=== PATIENT | female | born 1940 | race Caucasian/White ===

== ENCOUNTER 2017-01-01 17:41 | Inpatient (IN) ==
[2017-01-01] MEDS ORDERED: ACETAMINOPHEN 325 MG TABLET PO ONE (18:04)
--- NOTE | 2017-01-01 18:04 | Emergency Department Note ---
General Adult HPI - General Chief complaint: Neuro Symptoms/Deficit Stated complaint: Hand tremors Time Seen by Provider: 01/01/17 17:55 Source: patient Mode of arrival: ambulatory Limitations: no limitations - History of Present Illness HPI Narrative: 76-year-old female who states within the last hour she started developing fever and chills the current temperature is 103.4 with a rectal temperature 104.2 denies any cough no shortness of breath. Denies urgency frequency or dysuria there is been no nausea vomiting no diarrhea constipation problems no hematemesis no melena. Denies upper respiratory type signs or symptoms. She states that she did scrape her heel on the left on some Sinemet approximately 5 days ago and has a small open wound on the left heel she is not diabetic. Patient denies any abdominal pain rate is running approximately 103 b pulse ox is normal - Related Data Home Medications Medication Instructions Recorded Confirmed Diltiazem HCl [Diltiazem ER] 240 mg PO DAILY 01/01/17 01/01/17 Rivaroxaban [Xarelto] 20 mg PO HS 01/01/17 01/01/17 Tolterodine Tartrate [Detrol] 2 mg PO BID 01/01/17 01/01/17 Allergies Allergy/AdvReac Type Severity Reaction Status Date / Time No Known Drug Allergies Allergy Unverified 01/01/17 17:45 Review of Systems All systems ED: reviewed and negative except as stated. Constitutional: Reports: fever, chills Eyes: Denies: eye pain ENT ED: Denies: ear pain, throat pain Cardiovascular: Denies: chest pain, palpitations, dyspnea on exertion Respiratory: Denies: cough, dyspnea Gastrointestinal: Denies: abdominal pain, nausea, vomiting, diarrhea, constipation Genitourinary: Denies: urgency, dysuria, frequency Musculoskeletal: Denies: back pain Integumentary: Denies: rash Neurological: Denies: as per HPI, headache, weakness, numbness, paresthesias, confusion, abnormal gait Psychiatric: Denies: anxiety Endocrine: Denies: fatigue Hematological/Lymphatic: Denies: easy bleeding Allergic/Immunologic: Denies: facial swelling Past Medical History - Past Medical History Medical history: Reports: atrial fibrillation (on xeralto) Surgical history ED: Reports: other (right knee) Family history: Reports: cancer (father lung and sister colon), diabetes ( mother age 93) - Social History smoking status: Never smoker Alcohol use: Reports: None Drug use: Reports: none Physical Exam - General Limitations: no limitations General appearance: alert - Head Head exam: atraumatic, normocephalic - Eye Eye exam: Present: normal appearance, PERRL - ENT ENT exam: normal exam, normal oropharynx, mucous membranes moist - Neck Neck exam: Present: normal inspection, full ROM, trachea midline - Chest Chest inspection: Present: normal inspection, symmetric chest wall rise. Absent : tenderness - Respiratory Respiratory exam: Present: normal lung sounds bilaterally. Absent: respiratory distress, wheezes, stridor - Cardiovascular Cardiovascular exam: Present: regular rate, tachycardia - Abdominal Exam Abdominal exam: Present: soft, normal bowel sounds. Absent: distention, tenderness, guarding, rebound, rigidity - Extremities Exam Extremities exam: Present: normal inspection, full ROM. Absent: tenderness - Back Exam Back exam: Present: normal inspection, full ROM. Absent: tenderness - Neurological Exam Neurological exam: Present: alert, oriented X3, CN II-XII intact - Psychiatric Psychiatric exam: Present: normal affect, normal mood - Skin Skin exam: Present: warm, dry Course Vital Signs Temperature 100.1 F H 01/01/17 17:42 Pulse Rate 103 H 01/01/17 17:42 Respiratory Rate 18 01/01/17 17:42 Blood Pressure 178/75 01/01/17 17:42 Pulse Oximetry (%) 96 01/01/17 17:42 Temperature 102.7 F H 01/01/17 19:21 Pulse Rate 96 H 01/01/17 20:48 Respiratory Rate 18 01/01/17 20:48 Blood Pressure 137/69 01/01/17 20:32 Pulse Oximetry (%) 94 01/01/17 20:48 Medical Decision Making - [facility] Narrative Medical decision making narrative: urine did show 8 wbc/hpf, also redness around sore on left heel wbc 17,000, chest x ray normal. lactic 1.8 pt reluctant to be admitted but finally consented and Dr Doll consulted and pt to be admitted levaquin first given for uti then vancomycin after blood cultures drawn. c and s pending - Lab Data Result diagrams: 01/01/17 17:55 01/01/17 17:55 Lab Results 01/01/17 01/01/17 01/01/17 Range/Units 17:55 17:55 17:55 WBC 17.0 H (4.5-11.0) K/mcL RBC 4.30 (4.00-5.20) M/mcL Hgb 12.6 (12.0-15.0) g/dL Hct 37.5 (36.0-48.0) % MCV 87.2 (80.0-100.0) fL MCH 29.3 (26.0-34.0) pg MCHC 33.6 (31.0-36.0) g/dL RDW 14.0 (11.5-14.5) % Plt Count 223 (140-440) K/mcL MPV 9.4 (7.4-10.4) fL Total Counted 100 Seg Neutrophils % 86 H (38-78) % Band Neutrophils % 1 (0-10) % Lymphocytes % 9 L (15-49) % Monocytes % (Manual) 4 (1-12) % Platelet Estimate Normal (NORMAL) RBC Morphology Normal (NORMAL) VBG Lactic Acid 1.8 (0.5-2.2) mmol/L Sodium 137 (133-145) mmol/L Potassium 4.6 (3.3-5.1) mmol/L Chloride 98 (96-108) mmol/L Carbon Dioxide 21 L (22-30) mmol/L Anion Gap 18.0 H (8-16) BUN 27 H (8-23) mg/dl Creatinine 1.1 (0.6-1.1) mg/dl GFR Calculation 48 Glucose 85 (70-105) mg/dL Calcium 9.1 (8.6-10.4) mg/dl Total Bilirubin 0.4 (0.0-1.0) mg/dL AST 21 (0-37) U/l ALT 12 (0-40) U/l Alkaline Phosphatase 91 (39-117) U/L Total Protein 8.0 (5.9-8.4) gm/dL Albumin 4.4 (3.2-5.2) gm/dL Globulin 3.6 (2.2-3.7) gm/dL Albumin/Globulin Ratio 1.2 (1.0-2.3) Urine Color Urine Appearance Urine pH (5.0-9.0) Ur Specific [place] (1.000-1.035) Urine Protein (NEG) mg/dL Urine Glucose (UA) (NEG) mg/dL Urine Ketones (NEG) mg/dL Urine Occult Blood (<0.03) mg/dL Urine Nitrate (NEG) Urine Bilirubin (NEG) mg/dL Urine Urobilinogen (NEG) mg/dL Ur Leukocyte Esterase (NEG) /uL Urine RBC (0-1) /hpf Urine WBC (0-4) /hpf Ur Squamous Epith Cells (0-4) /hpf Ur Transition Epith Cell (0-2) /hpf Urine Bacteria (0) /hpf Hyaline Casts (0-2) /lpf Urine Mucus (0) /hpf Ur Culture Indicated? 01/01/17 Range/Units 18:43 WBC (4.5-11.0) K/mcL RBC (4.00-5.20) M/mcL Hgb (12.0-15.0) g/dL Hct (36.0-48.0) % MCV (80.0-100.0) fL MCH (26.0-34.0) pg MCHC (31.0-36.0) g/dL RDW (11.5-14.5) % Plt Count (140-440) K/mcL MPV (7.4-10.4) fL Total Counted Seg Neutrophils % (38-78) % Band Neutrophils % (0-10) % Lymphocytes % (15-49) % Monocytes % (Manual) (1-12) % Platelet Estimate (NORMAL) RBC Morphology (NORMAL) VBG Lactic Acid (0.5-2.2) mmol/L Sodium (133-145) mmol/L Potassium (3.3-5.1) mmol/L Chloride (96-108) mmol/L Carbon Dioxide (22-30) mmol/L Anion Gap (8-16) BUN (8-23) mg/dl Creatinine (0.6-1.1) mg/dl GFR Calculation Glucose (70-105) mg/dL Calcium (8.6-10.4) mg/dl Total Bilirubin (0.0-1.0) mg/dL AST (0-37) U/l ALT (0-40) U/l Alkaline Phosphatase (39-117) U/L Total Protein (5.9-8.4) gm/dL Albumin (3.2-5.2) gm/dL Globulin (2.2-3.7) gm/dL Albumin/Globulin Ratio (1.0-2.3) Urine Color Yellow Urine Appearance Clear Urine pH 5.0 (5.0-9.0) Ur Specific [place] 1.016 (1.000-1.035) Urine Protein Neg (NEG) mg/dL Urine Glucose (UA) Negative (NEG) mg/dL Urine Ketones Neg (NEG) mg/dL Urine Occult Blood 0.03 A (<0.03) mg/dL Urine Nitrate Neg (NEG) Urine Bilirubin Neg (NEG) mg/dL Urine Urobilinogen Neg (NEG) mg/dL Ur Leukocyte Esterase 75 A (NEG) /uL Urine RBC 1 (0-1) /hpf Urine WBC 8 H (0-4) /hpf Ur Squamous Epith Cells 2 (0-4) /hpf Ur Transition Epith Cell 1 (0-2) /hpf Urine Bacteria 0 (0) /hpf Hyaline Casts 1 (0-2) /lpf Urine Mucus Few (0) /hpf Ur Culture Indicated? Yes Disposition Pt seen by TRUCK TECHNICIAN/PA only: No Clinical Impression: Cellulitis of heel, left, UTI (urinary tract infection) Disposition: Xfer As Inpt ([facility])
[2017-01-01] MEDS ORDERED: 0.9 % SODIUM CHLORIDE 1,000 ML IV ONE ×2 (18:05→19:08)
--- NOTE | 2017-01-01 18:30 | XRay Report ---
CLINICAL INFORMATION: Fever COMPARISON: None. FINDINGS: The heart is mildly enlarged. Mediastinum is unremarkable. Pulmonary vessels are mildly distended and there is mild interstitial edema. No infiltrates. No definite effusion IMPRESSION: Mild CHF Interpreted and Authenticated by: Heath Sorto 01/01/17
[2017-01-01 18:53] LABS: Mean Cell Volume 87.2 fL (80.0-100.0); Mean Corpuscular HGB Conc 33.6 g/dL (31.0-36.0); Mean Corpuscular Hemoglobin 29.3 pg (26.0-34.0); Platelet Count 223 K/mcL (140-440)
[2017-01-01 19:11] LABS: ALT/SGPT 12 U/l (0-40); Albumin 4.4 gm/dL (3.2-5.2); Albumin/Globulin Ratio 1.2 (1.0-2.3); Alkaline Phosphatase 91 U/L (39-117); Blood Urea Nitrogen 27 mg/dl (8-23)
[2017-01-01 19:14] LABS: Band Neutrophils % 1 % (0-10); Lymphocytes % 9 % (15-49); Monocytes % (Manual) 4 % (1-12); Platelet Estimate NORMAL (NORMAL); RBC Morphology NORMAL (NORMAL); Segmented Neutrophils % 86 % (38-78)
[2017-01-01 19:30] LABS: Appearance,Urine CLEAR; Bacteria,Urine 0 /hpf (0); Bilirubin,Urine NEG (NEG); Color,Urine YELLOW; Glucose,Urine (UA) NEGATIVE (NEG); Leukocyte Esterase,Urine 75 /uL (NEG); Mucus,Urine FEW /hpf (0); Nitrate,Urine NEG (NEG); Protein,Urine NEG (NEG); Specific Gravity,Urine 1.016 (1.000-1.035); Urine Blood 0.03 mg/dL (<0.03); Urine Hyaline Cast 1 /lpf (0-2); Urine RBC 1 /hpf (0-1); Urine Squamous Epithelial Cell 2 /hpf (0-4); Urine Transitional Epi Cells 1 /hpf (0-2); Urine WBC 8 /hpf (0-4); Urobilinogen,Urine NEG (NEG)
[2017-01-01] MEDS ORDERED: LEVOFLOXACIN 500 MG/100 ML BAG IV ONE (19:56)
[2017-01-01] MEDS ORDERED: IBUPROFEN 200 MG TABLET PO ONE (20:21)
[2017-01-01] MEDS ORDERED: LEVOFLOXACIN IV ONE (20:29)
--- NOTE | 2017-01-01 22:07 | Internal Med History&Physical ---
Medical - H&P: HPI Patient information: Note initiated : 01/01/17 at 10:00 pm Service Date, if different from initiated Date: [] Patient: Xi Moran a 76 y/o F admitted on for Hand tremors. Chief Complaint: [] History of present illness: Ms. Moran is a 76 year old Female with h/o HTN, Afib presented to the ER today after being having shaknes and weakness going on since this afternoon. The patient had come to visit her brother, and at his place noted that she was having some shakes, she was also a bit weak, but no other symptoms. She checked with her friend who is a nurse who advised her to come to the ER. In the ER she was noted to be febrile with tmax of > 105, The patients shakes resolved in the ER. The patient denied any other complaint. NO subjective fever, some chills, but no sweating.mild headache with fever, no runny nose, no watery eyes, no difficulty in swallowing, no sinus pain, no acute loss or hearing or otalgai, she had no cough, no abdominal pain, no urinary symtoms, no bowel symptmos, chr joint pains no acute changes, no unprovoked skin rash. The patient workup in the ER Showed elevated wbc count, neg cxr, mildly positive UA (in .light of neg symptoms). Thee patient exam in the ER revealed a abrasion to the left heel, with surrounding warmth and redness. The patient noted that she had injured the foot 5 days ago, but did not notice anything unusual until it was pointed out to her today in the ER. Thee patient Blood cx, u rine CX, wound Cx done, patient was given levofloxacin and admitted to the hospital for cellulitis. The patient has been camping 2 weeks ago, but denies anyone else on the trip was sick, She also is presently taking care of a sick grand daughter. All systems: reviewed and no additional remarkable complaints except as stated ( as per HPI) Medical - H&P: PMH Medical history: HTN Afib Overactive Bladder. 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 Medical - H&P: Meds Home Medications Medication Instructions Recorded Confirmed Type Diltiazem HCl [Diltiazem ER] 240 mg PO DAILY 01/01/17 01/01/17 History Rivaroxaban [Xarelto] 20 mg PO HS 01/01/17 01/01/17 History Tolterodine Tartrate [Detrol] 2 mg PO BID 01/01/17 01/01/17 History Allergies Allergy/AdvReac Type Severity Reaction Status Date / Time No Known Drug Allergies Allergy Unverified 01/01/17 17:45 Medical - H&P: Exam - Constitutional Vitals: Temp Pulse Resp BP Pulse Ox 102.7 F H 96 H 18 137/69 94 01/01/17 19:21 01/01/17 20:48 01/01/17 20:48 01/01/17 20:32 01/01/17 20:48 Exam: GENERAL: The patient is a well-developed, well-nourished in no apparent distress. Is alert and oriented x3. VITAL SIGNS: Reviewed and as noted elsewhere. HEENT: Head is normocephalic and atraumatic. Extraocular muscles are intact. Pupils are equal, round, and reactive to light. Nares appeared normal. Mouth appears any without lesions. Mucous membranes are moist. NECK: Normal to inspection, Supple, No lymphadenopathy or thyromegaly. LUNGS: Air entry equal on both sides, no wheezing, crackles or rhonchi noted. No accessory muscles of respiration HEART: Regular rate and rhythm normal to auscultation today, S1 and S2 heard, no Gallop, S3 or Rub Noted, No Gross murmur heard. ABDOMEN: Soft, nontender, and nondistended. Positive bowel sounds. No hepatosplenomegaly was noted. EXTREMITIES: No cyanosis, clubbing, rash, lesions or edema. NEUROLOGIC: Cranial nerves II through XII are grossly intact. Motor and Sensory System Grossly Intact PSYCHIATRIC: Normal affect, Normal Mood. Appropriate Behavior. SKIN: No ulceration or wounds noted, No jaundice, No rash noted. Left foot: heel has open wound, cleaned in the ER, with some bleeding, 1cms, good bleeding from site, Surrounding region is erythematous and warm to touch, ap proximately 6x8 cms, skin maker used to franklin the affected region. Medical - H&P: Reslt - Labs CBC & Chem 7: 01/01/17 17:55 01/01/17 17:55 Labs: Short CBC 01/01/17 Range/Units 17:55 WBC 17.0 H (4.5-11.0) K/mcL Hgb 12.6 (12.0-15.0) g/dL Hct 37.5 (36.0-48.0) % Plt Count 223 (140-440) K/mcL BMP 01/01/17 17:55 Sodium 137 Potassium 4.6 Chloride 98 Carbon Dioxide 21 L BUN 27 H Creatinine 1.1 Glucose 85 Calcium 9.1 Liver Function 01/01/17 Range/Units 17:55 Total Bilirubin 0.4 (0.0-1.0) mg/dL AST 21 (0-37) U/l ALT 12 (0-40) U/l Alkaline Phosphatase 91 (39-117) U/L Albumin 4.4 (3.2-5.2) gm/dL Urine 01/01/17 Range/Units 18:43 Urine Color Yellow Urine Appearance Clear Urine pH 5.0 (5.0-9.0) Ur Specific [place] 1.016 (1.000-1.035) Urine Protein Neg (NEG) mg/dL Urine Glucose (UA) Negative (NEG) mg/dL Medical - H&P: A/P - Narrative A/P Narrative: A/P Sepsis Cellulitis Abnormal UA: but no urinary symptoms. Possible Viral illness Afib HTN Plan admit as inpatient Treat sepsis with IV fluids, IV vanco and zosyn, Descalate antibiotics based on cultures. BP stable at this point, lactic acid is normal Check procalcitonin Pt antibiotics will cover for possible UTI organisims at this point. Unlikely she has UTI given absent symptoms. continue home dose of cardizem Continue rivaroxabran Full code Cardiac Diet.
[2017-01-01] MEDS ORDERED: traZODone HCL 50 MG TABLET PO PRN (22:22)
[2017-01-01] MEDS ORDERED: VANCOMYCIN 1,000 MG in 0.9 % SODIUM CHLORIDE 250 ML IV ONE (22:22)
[2017-01-01] MEDS ORDERED: ONDANSETRON 4 MG/2 ML VIAL IV PRN (22:22)
[2017-01-01] MEDS ORDERED: IPRATROPIUM/ALBUTEROL 3 ML AMPUL.NEB NEB PRN (22:22)
[2017-01-01] MEDS ORDERED: VANCOMYCIN PER PHARMACY IV ONE (22:22)
[2017-01-01] MEDS ORDERED: MAGNESIUM HYDROXIDE 30 ML ORAL.SUSP PO PRN (22:22)
[2017-01-01] MEDS ORDERED: NALOXONE HCL 0.4 MG/ML VIAL IV PRN (22:22)
[2017-01-01] MEDS: 0.9 % SODIUM CHLORIDE 1,000 ML IV SCH (22:32)
[2017-01-01] MEDS: 0.9 % SODIUM CHLORIDE 10 ML SYRINGE IV SCH (22:32)
[2017-01-01] MEDS ORDERED: VANCOMYCIN 1 GM VIAL ONE (22:36)
[2017-01-01] MEDS ORDERED: PIPERACILLIN SODIUM/TAZOBACTAM 3.375 GM VIAL IV ONE (22:36)
[2017-01-01] MEDS: PIPERACILLIN SODIUM/TAZOBACTAM 3.375 GM in DEXTROSE 5% IN WATER 50 ML IV SCH (22:56)
[2017-01-02] MEDS ORDERED: PIPERACILLIN SODIUM/TAZOBACTAM 3.375 GM VIAL IV ONE (05:24)
[2017-01-02] MEDS: PIPERACILLIN SODIUM/TAZOBACTAM 3.375 GM in DEXTROSE 5% IN WATER 50 ML IV SCH ×4 (05:36→23:44)
[2017-01-02] MEDS: 0.9 % SODIUM CHLORIDE 10 ML SYRINGE IV SCH ×3 (05:39→21:07)
[2017-01-02] MEDS: 0.9 % SODIUM CHLORIDE 1,000 ML IV SCH ×4 (05:39→17:30)
[2017-01-02] MEDS ORDERED: VANCOMYCIN PER PHARMACY IV SCH (07:15)
[2017-01-02 07:32] LABS: Basophils # (Auto) 0.1 K/mcL (0.0-0.3); Basophils % (Auto) 0.4 % (0.0-2.0); Eosinophils # (Auto) 0 K/mcL (0.0-0.7); Eosinophils % (Auto) 0 % (0.0-7.0); Granulocytes % (Auto) 92.3 % (38.0-78.0); Lymphocytes # (Auto) 0.8 K/mcL (1.5-4.8); Lymphocytes % (Auto) 4.2 % (15.5-49.0); Mean Cell Volume 87.9 fL (80.0-100.0); Mean Corpuscular HGB Conc 33.6 g/dL (31.0-36.0); Mean Corpuscular Hemoglobin 29.6 pg (26.0-34.0); Monocytes # (Auto) 0.6 K/mcL (0.1-0.9); Monocytes % (Auto) 3.1 % (1.0-12.0); Platelet Count 164 K/mcL (140-440); RBC 3.76 M/mcL (4.00-5.20); Red Cell Distribution Width 14.1 % (11.5-14.5)
[2017-01-02 07:38] LABS: ALT/SGPT 10 U/l (0-40); Albumin 3.2 gm/dL (3.2-5.2); Albumin/Globulin Ratio 1.1 (1.0-2.3); Alkaline Phosphatase 70 U/L (39-117); Bilirubin,Direct < 0.2 mg/dL (0.0-0.3); Blood Urea Nitrogen 22 mg/dl (8-23); Gamma Glutamyl Transpeptidase 17 U/L (5-36); Magnesium 1.8 mg/dL (1.6-2.5); Uric Acid 5.1 mg/dL (2.5-8.0)
[2017-01-02] MEDS: ACETAMINOPHEN 325 MG TABLET PO PRN ×2 (07:39→20:05)
[2017-01-02 08:12] LABS: Hemoglobin A1C 5.2 % HGB (4.0-6.0)
[2017-01-02] MEDS: DILTIAZEM 240 MG CAP.XL.24H PO SCH (08:59)
[2017-01-02] MEDS ORDERED: TOLTERODINE 1 MG TABLET PO SCH (09:00)
[2017-01-02] MEDS: TOLTERODINE 2 MG TABLET PO SCH ×2 (12:13→20:05)
--- NOTE | 2017-01-02 14:07 | Internal Med Progress Note ---
Medical - PN: Subj Patient information: Note initiated : 01/02/17 at 2:03 pm Service Date, if different from initiated Date: [] Patient: Xi Moran a 76 y/o F admitted on 01/01/17 for Hand Tremors/ Cellulitis, Sepsis. Chief Complaint: [] Interval history: Ms. Moran is a 76 year old Female with h/o HTN, Afib presented to the ER today after being having shaknes and weakness going on since this afternoon. The patient had come to visit her brother, and at his place noted that she was having some shakes, she was also a bit weak, but no other symptoms. She checked with her friend who is a nurse who advised her to come to the ER. In the ER she was noted to be febrile with tmax of > 105, The patients shakes resolved in the ER. The patient denied any other complaint. NO subjective fever, some chills, but no sweating.mild headache with fever, no runny nose, no watery eyes, no difficulty in swallowing, no sinus pain, no acute loss or hearing or otalgai, she had no cough, no abdominal pain, no urinary symtoms, no bowel symptmos, chr joint pains no acute changes, no unprovoked skin rash. The patient workup in the ER Showed elevated wbc count, neg cxr, mildly positive UA (in .light of neg symptoms). Thee patient exam in the ER revealed a abrasion to the left heel, with surrounding warmth and redness. The patient noted that she had injured the foot 5 days ago, but did not notice anything unusual until it was pointed out to her today in the ER. Thee patient Blood cx, u rine CX, wound Cx done, patient was given levofloxacin and admitted to the hospital for cellulitis. 01/02: Pt seen examined, pt remains febrile, but not as bad as yesterday, still is tired and fatigued, the erythema on the leg has worsend significantly from just above the ankle to the involing 2/3 of the leg, non tender, and no skip lesions noted. repeat eval throughout the day done and the areas has remained stable since morning. The patient otherwise is doing well, no other complaints. Her blood cx is positive for gpc, echo ordered. Pertinent ROS: Denies headache, dizziness Denies chest pain, palpitations Denies cough or shortness of breath Denies abdominal pain, nausea or vomiting. - Constitutional Vitals: Vital Signs Temp Pulse Resp BP Pulse Ox 100.4 F H 88 20 140/78 95 01/02/17 12:00 01/02/17 12:00 01/02/17 12:00 01/02/17 12:00 01/02/17 12:00 Period Temp Pulse Resp BP Sys/Scott Pulse Ox Last 24 Hr 98.1 F-101.7 F 86-91 18-20 116-140/62-78 95-97 Intake and Output 01/02/17 01/02/17 01/02/17 05:59 13:59 21:59 Intake Total 50 / 50 1000 / 1000 Output Total 700 / 700 400 / 400 Balance -650 / -650 600 / 600 Intake & Output: Intake & Output 01/02/17 01/02/17 01/02/17 05:59 13:59 21:59 Intake Total 50 / 50 1000 / 1000 Output Total 700 / 700 400 / 400 Balance -650 / -650 600 / 600 Intake: IV 50 / 50 1000 / 1000 Sodium Chloride 0.9% 1, 1000 / 1000 000 ml @ 125 mls/hr IV . Q8H MYRTLE Rx#:[id number] Zosyn 3.375 gm In 50 / 50 Dextrose 5% in Water 50 ml @ 100 mls/hr IV Q6H MYRTLE Rx#:[id number] Output: Void Amount 700 / 700 400 / 400 Other: # Bowel Movements 1 Exam: Constitutional; Afebrile, cooperative, alert, not in distress. Eyes- No icterus, , No periorbital swelling Ears- Ext ear normal, hearing normal to conversation. Neck- Midline trachea, supple Respiratory system: Air Entry equal on both sides, No crackles or wheezing, no rhonchi. CVS- Rate rhythm regular, S1,S2 heard, no gallop, no rub. Abdomen- Soft nontender abdomen, no organomegaly, no tenderness, no guarding or rigidity, INTERNAL CONTROLS SPECIALIST- AOOx3, moving all extremities, no gross focal deficit noted. left leg,: area of erythema increased three fold, involing 2/3 of the left lower extremity, no skip lesions noted. Medical - PN: Obj Da - Labs CBC & Chem 7: 01/02/17 05:01 01/02/17 05:01 Labs: Abnormal Lab Results 01/02/17 01/02/17 05:01 05:01 WBC 18.1 H RBC 3.76 L Hgb 11.1 L Hct 33.1 L Gran % 92.3 H Lymph % (Auto) 4.2 L Gran # 16.7 H Lymph # (Auto) 0.8 L Carbon Dioxide 20 L Calcium 8.2 L Meds: Medications Acetaminophen (Tylenol) 650 mg PO Q6HP PRN PRN Reason: PAIN/FEVER > 101 Last Admin: 01/02/17 07:39 Dose: 650 mg Albuterol/Ipratropium (Duoneb) 3 ml NEB Q6HRT PRN PRN Reason: Shortness Of Breath Or Wheezing Diltiazem HCl (Cardizem Cd) 240 mg PO DAILY [facility] Last Admin: 01/02/17 08:59 Dose: 240 mg Sodium Chloride (Sodium Chloride 0.9%) 1,000 mls @ 125 mls/hr IV .Q8H [facility] Stop: 01/02/17 22:21 Last Admin: 01/02/17 09:00 Dose: 125 mls/hr Piperacillin Sod/Tazobactam (Sod 3.375 gm/ Dextrose) 50 mls @ 100 mls/hr IV Q6H [facility] Last Admin: 01/02/17 12:13 Dose: 100 mls/hr Vancomycin HCl 1,500 mg/ (Sodium Chloride) 500 mls @ 333.3 mls/hr IV ONCE ONE Stop: 01/02/17 19:30 Magnesium Hydroxide (Milk Of Magnesia) 30 ml PO DAILYP PRN PRN Reason: Constipation Naloxone HCl (Narcan) 0.1 mg IV Q2MIN PRN PRN Reason: Opiate Reversal Tolterodine 2 Mg (Tablet) 1 dose PO BID [facility] Last Admin: 01/02/17 12:13 Dose: 1 dose Ondansetron HCl (Zofran) 4 mg IV Q6HP PRN PRN Reason: Nausea And Vomiting Rivaroxaban (Xarelto) 20 mg PO HS [facility] Sodium Chloride (Saline Flush) 10 ml IV Q8 [facility] Last Admin: 01/02/17 05:39 Dose: Not Given Trazodone HCl (Desyrel) 25 mg PO HSP PRN PRN Reason: Insomnia Vancomycin HCl (Vancomycin Per Pharmacy) 1 order IV [facility] [place] Medical - PN: A/P - Time Spent With Patient Total time spent is greater than 50% in coordination of care (as documented) at patient's floor/unit and/or counseling patient: - Narrative A/P Narrative: A/P Sepsis/ left lower extremity Cellulitis/ BActermia: Await cultures, treat with vanco and zosyn for now, descalate as per sensitivity, Close monitoring of involved region. If worsens consult surgery Afib: rate controlled, on anticoagulation continue same HTN: continue cardizem Full code Cardiac Diet.
[2017-01-02] MEDS ORDERED: VANCOMYCIN 1,500 MG in 0.9 % SODIUM CHLORIDE 500 ML IV ONE (18:00)
[2017-01-02] MEDS: RIVAROXABAN 20 MG TABLET PO SCH (21:06)
[2017-01-03] MEDS: PIPERACILLIN SODIUM/TAZOBACTAM 3.375 GM in DEXTROSE 5% IN WATER 50 ML IV SCH ×4 (05:38→23:55)
[2017-01-03] MEDS: 0.9 % SODIUM CHLORIDE 10 ML SYRINGE IV SCH ×3 (05:38→21:47)
[2017-01-03 06:25] LABS: Basophils # (Auto) 0 K/mcL (0.0-0.3); Basophils % (Auto) 0.2 % (0.0-2.0); Eosinophils # (Auto) 0 K/mcL (0.0-0.7); Eosinophils % (Auto) 0.2 % (0.0-7.0); Granulocytes % (Auto) 87.4 % (38.0-78.0); Lymphocytes # (Auto) 1.3 K/mcL (1.5-4.8); Lymphocytes % (Auto) 8.2 % (15.5-49.0); Mean Cell Volume 87.9 fL (80.0-100.0); Mean Corpuscular HGB Conc 33.4 g/dL (31.0-36.0); Mean Corpuscular Hemoglobin 29.4 pg (26.0-34.0); Monocytes # (Auto) 0.6 K/mcL (0.1-0.9); Platelet Count 151 K/mcL (140-440); RBC 3.67 M/mcL (4.00-5.20); Red Cell Distribution Width 14.3 % (11.5-14.5)
[2017-01-03 06:39] LABS: ALT/SGPT 18 U/l (0-40); Alkaline Phosphatase 79 U/L (39-117); Bilirubin,Direct < 0.2 mg/dL (0.0-0.3); Blood Urea Nitrogen 13 mg/dl (8-23); Gamma Glutamyl Transpeptidase 23 U/L (5-36); Magnesium 1.9 mg/dL (1.6-2.5); Uric Acid 3.1 mg/dL (2.5-8.0)
[2017-01-03] MEDS: DILTIAZEM 240 MG CAP.XL.24H PO SCH (08:35)
[2017-01-03] MEDS: TOLTERODINE 2 MG TABLET PO SCH ×2 (09:11→21:34)
--- NOTE | 2017-01-03 09:31 | Internal Med Progress Note ---
Medical - PN: Subj Patient information: Note initiated : 01/03/17 at 9:28 am Service Date, if different from initiated Date: [] Patient: Xi Moran a 76 y/o F admitted on 01/01/17 for Hand Tremors/ Cellulitis, Sepsis. Chief Complaint: [] Interval history: Ms. Moran is a 76 year old Female with h/o HTN, Afib presented to the ER today after being having shaknes and weakness going on since this afternoon. The patient had come to visit her brother, and at his place noted that she was having some shakes, she was also a bit weak, but no other symptoms. She checked with her friend who is a nurse who advised her to come to the ER. In the ER she was noted to be febrile with tmax of > 105, The patients shakes resolved in the ER. The patient denied any other complaint. NO subjective fever, some chills, but no sweating.mild headache with fever, no runny nose, no watery eyes, no difficulty in swallowing, no sinus pain, no acute loss or hearing or otalgai, she had no cough, no abdominal pain, no urinary symtoms, no bowel symptmos, chr joint pains no acute changes, no unprovoked skin rash. The patient workup in the ER Showed elevated wbc count, neg cxr, mildly positive UA (in .light of neg symptoms). Thee patient exam in the ER revealed a abrasion to the left heel, with surrounding warmth and redness. The patient noted that she had injured the foot 5 days ago, but did not notice anything unusual until it was pointed out to her today in the ER. Thee patient Blood cx, u rine CX, wound Cx done, patient was given levofloxacin and admitted to the hospital for cellulitis. 01/02: Pt seen examined, pt remains febrile, but not as bad as yesterday, still is tired and fatigued, the erythema on the leg has worsend significantly from just above the ankle to the involing 2/3 of the leg, non tender, and no skip lesions noted. repeat eval throughout the day done and the areas has remained stable since morning. The patient otherwise is doing well, no other complaints. Her blood cx is positive for gpc, echo ordered. 01/03-atient doing better. no overnight events. downtrending leukocytosis. left lower extremity redness has not extended beyond demarcation line and extends up to the mid leg. She continues to experience shaking chills. Blood cultures positive for gram-positive cocci. urveillance cultures drawn. Broad antibiotic coverage including vancomycin and Zosyn. Patient wishes to ambulate and have a shower. she denies chest pain headache. - Constitutional Vitals: Vital Signs Temp Pulse Resp BP Pulse Ox 98.7 F 84 18 122/54 97 01/03/17 07:23 01/03/17 07:04 01/03/17 07:23 01/03/17 07:23 01/03/17 07:23 Period Temp Pulse Resp BP Sys/Scott Pulse Ox Last 24 Hr 98.4 F-100.4 F 84-95 16-20 121-147/54-82 95-97 Intake and Output 01/02/17 01/03/17 01/03/17 21:59 05:59 13:59 Intake Total 1850 / 1850 1550 / 1550 450 / 450 Output Total 500 / 500 2400 / 2400 400 / 400 Balance 1350 / 1350 -850 / -850 50 / 50 Weight 206 lb 5 oz Intake & Output: Intake & Output 01/02/17 01/03/17 01/03/17 21:59 05:59 13:59 Intake Total 1850 / 1850 1550 / 1550 450 / 450 Output Total 500 / 500 2400 / 2400 400 / 400 Balance 1350 / 1350 -850 / -850 50 / 50 Weight 206 lb 5 oz Intake: IV 1100 / 1100 50 / 50 Sodium Chloride 0.9% 1, 1000 / 1000 000 ml @ 125 mls/hr IV . Q8H [facility] Rx#:[id number] Zosyn 3.375 gm In 100 / 100 50 / 50 Dextrose 5% in Water 50 ml @ 100 mls/hr IV Q6H [facility] Rx#:[id number] Oral 750 / 750 1500 / 1500 450 / 450 Output: Void Amount 500 / 500 2400 / 2400 400 / 400 Other: Meal Dinner Breakfast Percent of Meal Consumed 25% 100% Feeding Ability Independent Independent # Voids 2 General appearance: cooperative, no acute distress, obese Exam: oriented Nonlabored breathing Left lower extremity redness and swelling extending up toleft mid leg from the heel. Area demarcated ondistended nontender abdomen Medical - PN: Obj Da - Labs CBC & Chem 7: 01/03/17 04:25 01/03/17 04:25 Labs: Abnormal Lab Results 01/03/17 01/03/17 01/02/17 04:25 04:25 05:01 WBC 15.4 H RBC 3.67 L Hgb 10.8 L Hct 32.3 L Gran % 87.4 H Lymph % (Auto) 8.2 L Gran # 13.4 H Lymph # (Auto) 1.3 L Carbon Dioxide 20 L Calcium 8.2 L 8.2 L Phosphorus 2.1 L Albumin 3.0 L 01/02/17 05:01 WBC 18.1 H RBC 3.76 L Hgb 11.1 L Hct 33.1 L Gran % 92.3 H Lymph % (Auto) 4.2 L Gran # 16.7 H Lymph # (Auto) 0.8 L Carbon Dioxide Calcium Phosphorus Albumin Meds: Medications Acetaminophen (Tylenol) 650 mg PO Q6HP PRN PRN Reason: PAIN/FEVER > 101 Last Admin: 01/02/17 20:05 Dose: 650 mg Albuterol/Ipratropium (Duoneb) 3 ml NEB Q6HRT PRN PRN Reason: Shortness Of Breath Or Wheezing Diltiazem HCl (Cardizem Cd) 240 mg PO DAILY [facility] Last Admin: 01/02/17 08:59 Dose: 240 mg Piperacillin Sod/Tazobactam (Sod 3.375 gm/ Dextrose) 50 mls @ 100 mls/hr IV Q6H [facility] Last Admin: 01/03/17 05:38 Dose: 100 mls/hr Magnesium Hydroxide (Milk Of Magnesia) 30 ml PO DAILYP PRN PRN Reason: Constipation Naloxone HCl (Narcan) 0.1 mg IV Q2MIN PRN PRN Reason: Opiate Reversal Tolterodine 2 Mg (Tablet) 1 dose PO BID [facility] Last Admin: 01/03/17 09:11 Dose: 1 dose Ondansetron HCl (Zofran) 4 mg IV Q6HP PRN PRN Reason: Nausea And Vomiting Rivaroxaban (Xarelto) 20 mg PO HS [facility] Last Admin: 01/02/17 21:06 Dose: 20 mg Sodium Chloride (Saline Flush) 10 ml IV Q8 [facility] Last Admin: 01/03/17 05:38 Dose: 10 ml Trazodone HCl (Desyrel) 25 mg PO HSP PRN PRN Reason: Insomnia Vancomycin HCl (Vancomycin Per Pharmacy) 1 order IV UD [facility] Medical - PN: A/P - Time Spent With Patient Total time spent is greater than 50% in coordination of care (as documented) at patient's floor/unit and/or counseling patient: 25 - 35 minutes - Narrative A/P Narrative: A/P * Left lower extremity cellulitis-continue antibiotic coverage * Gram-positive bacteremia-Surveillance cultures pending. Broad antibiotic coverage. De-escalate based on cultures * severe sepsis-Clinically improving. White count down to 15.4 from 18. * Atrial fibrillation rate controlled * Anticoagulation for CVA prophylaxis on the rivaroxaban * Hypertension-Blood pressures at goal * Full code Plan * Surveillance cultures * Broad antibiotics * re-existing medical condition management as Above
[2017-01-03] MEDS: RIVAROXABAN 20 MG TABLET PO SCH (21:33)
[2017-01-04] MEDS: PIPERACILLIN SODIUM/TAZOBACTAM 3.375 GM in DEXTROSE 5% IN WATER 50 ML IV SCH ×3 (05:45→17:48)
[2017-01-04] MEDS: 0.9 % SODIUM CHLORIDE 10 ML SYRINGE IV SCH ×3 (05:46→21:09)
[2017-01-04 06:37] LABS: Basophils # (Auto) 0 K/mcL (0.0-0.3); Basophils % (Auto) 0.2 % (0.0-2.0); Eosinophils # (Auto) 0.1 K/mcL (0.0-0.7); Eosinophils % (Auto) 0.9 % (0.0-7.0); Granulocytes % (Auto) 81.7 % (38.0-78.0); Lymphocytes # (Auto) 1.5 K/mcL (1.5-4.8); Lymphocytes % (Auto) 10.9 % (15.5-49.0); Mean Cell Volume 88.3 fL (80.0-100.0); Mean Corpuscular HGB Conc 33.6 g/dL (31.0-36.0); Mean Corpuscular Hemoglobin 29.7 pg (26.0-34.0); Monocytes # (Auto) 0.9 K/mcL (0.1-0.9); Monocytes % (Auto) 6.3 % (1.0-12.0); Platelet Count 155 K/mcL (140-440); RBC 3.68 M/mcL (4.00-5.20)
[2017-01-04 07:00] LABS: ALT/SGPT 14 U/l (0-40); Albumin 3.1 gm/dL (3.2-5.2); Albumin/Globulin Ratio 0.9 (1.0-2.3); Alkaline Phosphatase 102 U/L (39-117); Bilirubin,Direct < 0.2 mg/dL (0.0-0.3); Blood Urea Nitrogen 15 mg/dl (8-23); Gamma Glutamyl Transpeptidase 23 U/L (5-36); Uric Acid 3.3 mg/dL (2.5-8.0)
[2017-01-04] MEDS: TOLTERODINE 2 MG TABLET PO SCH ×2 (08:54→21:09)
[2017-01-04] MEDS: VANCOMYCIN 1,500 MG in 0.9 % SODIUM CHLORIDE 500 ML IV SCH (08:55)
[2017-01-04] MEDS: DILTIAZEM 240 MG CAP.XL.24H PO SCH (08:55)
--- NOTE | 2017-01-04 09:58 | Internal Med Progress Note ---
Medical - PN: Subj Patient information: Note initiated : 01/04/17 at 9:56 am Service Date, if different from initiated Date: [] Patient: Xi Moran a 76 y/o F admitted on 01/01/17 for Hand Tremors/ Cellulitis, Sepsis. Chief Complaint: [] Interval history: Ms. Moran is a 76 year old Female with h/o HTN, Afib presented to the ER today after being having shaknes and weakness going on since this afternoon. The patient had come to visit her brother, and at his place noted that she was having some shakes, she was also a bit weak, but no other symptoms. She checked with her friend who is a nurse who advised her to come to the ER. In the ER she was noted to be febrile with tmax of > 105, The patients shakes resolved in the ER. The patient denied any other complaint. NO subjective fever, some chills, but no sweating.mild headache with fever, no runny nose, no watery eyes, no difficulty in swallowing, no sinus pain, no acute loss or hearing or otalgai, she had no cough, no abdominal pain, no urinary symtoms, no bowel symptmos, chr joint pains no acute changes, no unprovoked skin rash. The patient workup in the ER Showed elevated wbc count, neg cxr, mildly positive UA (in .light of neg symptoms). Thee patient exam in the ER revealed a abrasion to the left heel, with surrounding warmth and redness. The patient noted that she had injured the foot 5 days ago, but did not notice anything unusual until it was pointed out to her today in the ER. Thee patient Blood cx, u rine CX, wound Cx done, patient was given levofloxacin and admitted to the hospital for cellulitis. 01/02: Pt seen examined, pt remains febrile, but not as bad as yesterday, still is tired and fatigued, the erythema on the leg has worsend significantly from just above the ankle to the involing 2/3 of the leg, non tender, and no skip lesions noted. repeat eval throughout the day done and the areas has remained stable since morning. The patient otherwise is doing well, no other complaints. Her blood cx is positive for gpc, echo ordered. 01/03-atient doing better. no overnight events. downtrending leukocytosis. left lower extremity redness has not extended beyond demarcation line and extends up to the mid leg. She continues to experience shaking chills. Blood cultures positive for gram-positive cocci. urveillance cultures drawn. Broad antibiotic coverage including vancomycin and Zosyn. Patient wishes to ambulate and have a shower. she denies chest pain headache. 01/04- Patient doing well. White count downtrending. Erythema and redness and pain much improved. Wound care consulted. Streptococcus Jae and is on cultures, surveillance cultures negative. Continue Zosyn/vancomycin for now and de-escalate to 2 weeks Rocephin from the day after last negative lood culture. - Constitutional Vitals: Vital Signs Temp Pulse Resp BP Pulse Ox 98.1 F 70 20 131/67 96 01/04/17 06:43 01/04/17 08:15 01/04/17 08:15 01/04/17 06:43 01/04/17 08:15 Period Temp Pulse Resp BP Sys/Scott Pulse Ox Last 24 Hr 97.8 F-98.9 F 70-95 14-20 112-131/55-67 94-98 Intake and Output 01/03/17 01/04/17 01/04/17 21:59 05:59 13:59 Intake Total 290 / 290 350 / 350 600 / 600 Output Total 450 / 450 550 / 550 475 / 475 Balance -160 / -160 -200 / -200 125 / 125 Weight 216 lb Intake & Output: Intake & Output 01/03/17 01/04/17 01/04/17 21:59 05:59 13:59 Intake Total 290 / 290 350 / 350 600 / 600 Output Total 450 / 450 550 / 550 475 / 475 Balance -160 / -160 -200 / -200 125 / 125 Weight 216 lb Intake: IV 50 / 50 50 / 50 Zosyn 3.375 gm In 50 / 50 50 / 50 Dextrose 5% in Water 50 ml @ 100 mls/hr IV Q6H [facility] Rx#:[id number] Oral 240 / 240 300 / 300 600 / 600 Output: Void Amount 450 / 450 550 / 550 475 / 475 Other: Meal Dinner Breakfast Percent of Meal Consumed 75% 100% Feeding Ability Independent Independent # Voids 1 General appearance: disheveled, morbidly obese Medical - PN: Obj Da - Labs CBC & Chem 7: 01/04/17 04:30 01/04/17 04:30 Labs: Abnormal Lab Results 01/04/17 01/04/17 01/03/17 04:30 04:30 17:06 WBC 13.9 H RBC 3.68 L Hgb 10.9 L Hct 32.5 L Gran % 81.7 H Lymph % (Auto) 10.9 L Gran # 11.4 H Lymph # (Auto) Carbon Dioxide Calcium Phosphorus 2.4 L Albumin 3.1 L Albumin/Globulin Ratio 0.9 L Vancomycin Trough 7.0 H 01/03/17 01/03/17 01/02/17 04:25 04:25 05:01 WBC 15.4 H RBC 3.67 L Hgb 10.8 L Hct 32.3 L Gran % 87.4 H Lymph % (Auto) 8.2 L Gran # 13.4 H Lymph # (Auto) 1.3 L Carbon Dioxide 20 L Calcium 8.2 L 8.2 L Phosphorus 2.1 L Albumin 3.0 L Albumin/Globulin Ratio Vancomycin Trough 01/02/17 05:01 WBC 18.1 H RBC 3.76 L Hgb 11.1 L Hct 33.1 L Gran % 92.3 H Lymph % (Auto) 4.2 L Gran # 16.7 H Lymph # (Auto) 0.8 L Carbon Dioxide Calcium Phosphorus Albumin Albumin/Globulin Ratio Vancomycin Trough Meds: Medications Acetaminophen (Tylenol) 650 mg PO Q6HP PRN PRN Reason: PAIN/FEVER > 101 Last Admin: 01/02/17 20:05 Dose: 650 mg Albuterol/Ipratropium (Duoneb) 3 ml NEB Q6HRT PRN PRN Reason: Shortness Of Breath Or Wheezing Diltiazem HCl (Cardizem Cd) 240 mg PO DAILY [facility] Last Admin: 01/04/17 08:55 Dose: 240 mg Piperacillin Sod/Tazobactam (Sod 3.375 gm/ Dextrose) 50 mls @ 100 mls/hr IV Q6H [facility] Last Admin: 01/04/17 05:45 Dose: 100 mls/hr Vancomycin HCl 1,500 mg/ (Sodium Chloride) 500 mls @ 333.3 mls/hr IV Q24H [facility] Last Admin: 01/04/17 08:55 Dose: 333.3 mls/hr Magnesium Hydroxide (Milk Of Magnesia) 30 ml PO DAILYP PRN PRN Reason: Constipation Naloxone HCl (Narcan) 0.1 mg IV Q2MIN PRN PRN Reason: Opiate Reversal Tolterodine 2 Mg (Tablet) 1 dose PO BID [facility] Last Admin: 01/04/17 08:54 Dose: 1 dose Ondansetron HCl (Zofran) 4 mg IV Q6HP PRN PRN Reason: Nausea And Vomiting Rivaroxaban (Xarelto) 20 mg PO HS [facility] Last Admin: 01/03/17 21:33 Dose: 20 mg Sodium Chloride (Saline Flush) 10 ml IV Q8 [facility] Last Admin: 01/04/17 05:46 Dose: 10 ml Trazodone HCl (Desyrel) 25 mg PO HSP PRN PRN Reason: Insomnia Vancomycin HCl (Vancomycin Per Pharmacy) 1 order IV UD [facility] Medical - PN: A/P - Time Spent With Patient Total time spent is greater than 50% in coordination of care (as documented) at patient's floor/unit and/or counseling patient: 15 - 24 minutes - Narrative A/P Narrative: A/P * Left lower extremity cellulitis-Clinically improving. wound care consulted * Strep pyogenes bacteremia-Surveillance cultures negative. ontinue Broad antibiotic coverage and de-escalate Rocephin on discharge * severe sepsis-Clinically improving. White count down to 13.9 from 18. * Atrial fibrillation rate controlled * Anticoagulation for CVA prophylaxis on rivaroxaban * Hypertension -Stable * Full code Plan * Wound care * midline placement * Pre-existing medical condition management as Above * ossible discharge in 24-48 hours
[2017-01-04] MEDS: RIVAROXABAN 20 MG TABLET PO SCH (21:09)
--- NOTE | 2017-01-04 22:31 | General Surgery Consult Note ---
History of Present Illness Patient information: Note initiated : 01/04/17 at 10:30 pm Service Date, if different from initiated Date: [] Patient: Xi Moran 76 y/o F admitted on 01/01/17 for Hand Tremors/ Cellulitis, Sepsis. Chief Complaint: [] Consult date: 01/04/17 Requesting physician: Bradford Reyes (Cellulitis Left leg and ulcer Left posteroir heel area) History of present illness: Patient seen in consultation for wound care management. Admitted via ER with Cellulitis LEFT leg from Knee to ankle and foot area. Noted to have a small skin ulcer posterior heel aspect. Medications and Allergies Home Medications Medication Instructions Recorded Confirmed Type Albuterol Sulfate [Proventil Hfa] 1 - 2 puff INH Q6H PRN 01/01/17 01/02/17 History Benzonatate [Benzonatate] 100 mg PO TID 01/01/17 01/01/17 History Diltiazem HCl [Diltiazem ER] 240 mg PO DAILY 01/01/17 01/01/17 History Hydrocodone/APAP 7.5/325Mg 1 tablet PO Q6H PRN 01/01/17 01/02/17 History Methocarbamol [Robaxin-750] 750 mg PO QIDP PRN 01/01/17 01/01/17 History Rivaroxaban [Xarelto] 20 mg PO HS 01/01/17 01/01/17 History Rivaroxaban [Xarelto] 20 mg PO QHS 01/01/17 01/01/17 History Tolterodine Tartrate [Detrol] 2 mg PO BID 01/01/17 01/01/17 History Allergies Allergy/AdvReac Type Severity Reaction Status Date / Time No Known Drug Allergies Allergy Unverified 01/01/17 17:45 Exam Temp Pulse Resp BP Pulse Ox 98.3 F 85 16 113/65 96 01/04/17 20:00 01/04/17 20:00 01/04/17 20:00 01/04/17 20:00 01/04/17 20:00 - General physical appearance well developed, well nourished, no distress, obese - Eyes PERRL, normal ocular movement - Head Head exam IM: Present: atraumatic, normal inspection, normocephalic - Neck no masses, no bruits, trachea midline, no lymphadectomy, no venous distension - Cardiovascular Cardiovascular exam IM: Present: normal rate and rhythm - Respiratory normal expansion, clear to auscultation - Abdomen Abdomen: Present: soft, non tender - Integumentary Present: other (REsolving cellulitis LEFT leg from knee to toes. Induration of subcutaneous tissue. NO crpitus, No drainage. Small < 0.5 CM superficial epidermal ulcer posterior heel ) - Neurologic Present: normal coordination, other (Non focal neurological examination) - Musculoskeletal Present: normal gait - Psychiatric Present: oriented to time, oriented to person, oriented to place, speech is normal, memory intact Results - Labs 01/05/17 05:00 01/05/17 05:00 Abnormal lab results 01/04/17 01/04/17 Range/Units 04:30 04:30 WBC 13.9 H (4.5-11.0) K/mcL RBC 3.68 L (4.00-5.20) M/mcL Hgb 10.9 L (12.0-15.0) g/dL Hct 32.5 L (36.0-48.0) % Gran % 81.7 H (38.0-78.0) % Lymph % (Auto) 10.9 L (15.5-49.0) % Gran # 11.4 H (1.8-8.0) K/mcL Phosphorus 2.4 L (2.7-4.5) mg/dL Albumin 3.1 L (3.2-5.2) gm/dL Albumin/Globulin Ratio 0.9 L (1.0-2.3) Diabetes panel 01/04/17 Range/Units 04:30 Sodium 141 (133-145) mmol/L Potassium 3.3 (3.3-5.1) mmol/L Chloride 104 (96-108) mmol/L Carbon Dioxide 23 (22-30) mmol/L BUN 15 (8-23) mg/dl Creatinine 1.0 (0.6-1.1) mg/dl Glucose 97 (70-105) mg/dL Calcium 8.8 (8.6-10.4) mg/dl AST 15 (0-37) U/l ALT 14 (0-40) U/l Alkaline Phosphatase 102 (39-117) U/L Total Protein 6.6 (5.9-8.4) gm/dL Albumin 3.1 L (3.2-5.2) gm/dL Triglycerides 117 (<150) mg/dl Calcium panel 01/04/17 Range/Units 04:30 Calcium 8.8 (8.6-10.4) mg/dl Phosphorus 2.4 L (2.7-4.5) mg/dL Albumin 3.1 L (3.2-5.2) gm/dL Pituitary panel 01/04/17 Range/Units 04:30 Sodium 141 (133-145) mmol/L Potassium 3.3 (3.3-5.1) mmol/L Chloride 104 (96-108) mmol/L Carbon Dioxide 23 (22-30) mmol/L BUN 15 (8-23) mg/dl Creatinine 1.0 (0.6-1.1) mg/dl Glucose 97 (70-105) mg/dL Calcium 8.8 (8.6-10.4) mg/dl Adrenal panel 01/04/17 Range/Units 04:30 Sodium 141 (133-145) mmol/L Potassium 3.3 (3.3-5.1) mmol/L Chloride 104 (96-108) mmol/L Carbon Dioxide 23 (22-30) mmol/L BUN 15 (8-23) mg/dl Creatinine 1.0 (0.6-1.1) mg/dl Glucose 97 (70-105) mg/dL Calcium 8.8 (8.6-10.4) mg/dl Total Bilirubin 0.5 (0.0-1.0) mg/dL AST 15 (0-37) U/l ALT 14 (0-40) U/l Alkaline Phosphatase 102 (39-117) U/L Total Protein 6.6 (5.9-8.4) gm/dL Albumin 3.1 L (3.2-5.2) gm/dL All other labs normal. Assessment and Plan (1) Cellulitis Status: Acute Priority: Medium Qualifiers: Site of cellulitis of extremity: lower extremity Laterality: left (2) Cellulitis of left anterior lower leg Status: Acute Priority: Medium Comment: Conservative management. Mepilex bordered foam LEFT posterior heel area. Monitor resolution of cellulitis clinically at this time.
[2017-01-05] MEDS: PIPERACILLIN SODIUM/TAZOBACTAM 3.375 GM in DEXTROSE 5% IN WATER 50 ML IV SCH ×2 (00:06→05:32)
[2017-01-05] MEDS: 0.9 % SODIUM CHLORIDE 10 ML SYRINGE IV SCH ×3 (05:33→21:13)
[2017-01-05 06:36] LABS: Basophils # (Auto) 0 K/mcL (0.0-0.3); Basophils % (Auto) 0.4 % (0.0-2.0); Eosinophils # (Auto) 0.3 K/mcL (0.0-0.7); Eosinophils % (Auto) 2.2 % (0.0-7.0); Granulocytes % (Auto) 71.7 % (38.0-78.0); Lymphocytes # (Auto) 2.3 K/mcL (1.5-4.8); Lymphocytes % (Auto) 18.8 % (15.5-49.0); Mean Cell Volume 87.5 fL (80.0-100.0); Mean Corpuscular HGB Conc 33.8 g/dL (31.0-36.0); Mean Corpuscular Hemoglobin 29.5 pg (26.0-34.0); Monocytes # (Auto) 0.8 K/mcL (0.1-0.9); Monocytes % (Auto) 6.9 % (1.0-12.0); Platelet Count 204 K/mcL (140-440); RBC 3.74 M/mcL (4.00-5.20); Red Cell Distribution Width 14.1 % (11.5-14.5)
[2017-01-05 07:02] LABS: ALT/SGPT 15 U/l (0-40); Albumin 3.5 gm/dL (3.2-5.2); Alkaline Phosphatase 102 U/L (39-117); Bilirubin,Direct < 0.2 mg/dL (0.0-0.3); Blood Urea Nitrogen 15 mg/dl (8-23); Gamma Glutamyl Transpeptidase 29 U/L (5-36); Magnesium 2.1 mg/dL (1.6-2.5); Uric Acid 3.5 mg/dL (2.5-8.0)
[2017-01-05] MEDS: DILTIAZEM 240 MG CAP.XL.24H PO SCH (09:31)
[2017-01-05] MEDS: TOLTERODINE 2 MG TABLET PO SCH ×2 (09:31→21:12)
[2017-01-05] MEDS: VANCOMYCIN 1,500 MG in 0.9 % SODIUM CHLORIDE 500 ML IV SCH (09:31)
[2017-01-05] MEDS ORDERED: POTASSIUM CHLORIDE 20 MEQ PACKET PO ONE (11:16)
[2017-01-05] MEDS: LACTOBACILLUS 1 CAPSULE PO SCH ×2 (11:22→21:19)
[2017-01-05] MEDS: CLINDAMYCIN 600 MG in DEXTROSE 5% IN WATER 50 ML IV SCH ×3 (11:22→23:51)
[2017-01-05] MEDS ORDERED: IOPAMIDOL 100 ML BOTTLE IV ONE (12:09)
[2017-01-05] MEDS: ceFAZolin 1 GM VIAL IV SCH ×2 (12:11→21:14)
--- NOTE | 2017-01-05 12:24 | Cat Scan Report ---
CLINICAL INFORMATION: Cellulitis COMPARISON: None. TECHNIQUE: 2.5 mm helical slices were obtained from the femoral condyles through the feet. Following reconstruction, sagittal, coronal axial reformatted images were processed and reviewed at bone and soft tissue windows FINDINGS: Moderate cellulitic changes throughout the subcutaneous fat which surrounds the fascia. Muscle and fascial compartments appear unremarkable, however. There is no evidence of myositis or fasciitis or abscess. Bone windows show no evidence of osteomyelitis. Total knee prostheses anatomically aligned without loosening or infection. Foot is significant for multiple chronic findings: pes cavus, moderate hallux valgus, metatarsus abductus and hammertoe deformities. IMPRESSION: Moderate cellulitis throughout the calf. There is no complication of abscess, myositis/fasciitis or osteomyelitis. Interpreted and Authenticated by: Heath Sorto 01/05/17
--- NOTE | 2017-01-05 13:56 | Internal Med Progress Note ---
Medical - PN: Subj Patient information: Note initiated : 01/05/17 at 1:49 pm Service Date, if different from initiated Date: [] Patient: Xi Moran a 76 y/o F admitted on 01/01/17 for Hand Tremors/ Cellulitis, Sepsis. Chief Complaint: [] Interval history: Ms. Moran is a 76 year old Female with h/o HTN, Afib presented to the ER today after being having shaknes and weakness going on since this afternoon. The patient had come to visit her brother, and at his place noted that she was having some shakes, she was also a bit weak, but no other symptoms. She checked with her friend who is a nurse who advised her to come to the ER. In the ER she was noted to be febrile with tmax of > 105, The patients shakes resolved in the ER. The patient denied any other complaint. NO subjective fever, some chills, but no sweating.mild headache with fever, no runny nose, no watery eyes, no difficulty in swallowing, no sinus pain, no acute loss or hearing or otalgai, she had no cough, no abdominal pain, no urinary symtoms, no bowel symptmos, chr joint pains no acute changes, no unprovoked skin rash. The patient workup in the ER Showed elevated wbc count, neg cxr, mildly positive UA (in .light of neg symptoms). Thee patient exam in the ER revealed a abrasion to the left heel, with surrounding warmth and redness. The patient noted that she had injured the foot 5 days ago, but did not notice anything unusual until it was pointed out to her today in the ER. Thee patient Blood cx, u rine CX, wound Cx done, patient was given levofloxacin and admitted to the hospital for cellulitis. 01/02: Pt seen examined, pt remains febrile, but not as bad as yesterday, still is tired and fatigued, the erythema on the leg has worsend significantly from just above the ankle to the involing 2/3 of the leg, non tender, and no skip lesions noted. repeat eval throughout the day done and the areas has remained stable since morning. The patient otherwise is doing well, no other complaints. Her blood cx is positive for gpc, echo ordered. 01/03-atient doing better. no overnight events. downtrending leukocytosis. left lower extremity redness has not extended beyond demarcation line and extends up to the mid leg. She continues to experience shaking chills. Blood cultures positive for gram-positive cocci. urveillance cultures drawn. Broad antibiotic coverage including vancomycin and Zosyn. Patient wishes to ambulate and have a shower. she denies chest pain headache. 01/04- Patient doing well. White count downtrending. Erythema and redness and pain much improved. Wound care consulted. Streptococcus Jae and is on cultures, surveillance cultures negative. Continue Zosyn/vancomycin for now and de-escalate to 2 weeks Rocephin from the day after last negative lood culture. 01/05: Pt seen examined, doing well, tolerating po diet well, on IV zosyn and vanco, the cellulitis is stable but has not improved to baseline, leg is still warm to touch, no crepitus on exam. Given that this is not resolved yet, CT Was done which showed moderate cellulitis but no deeper involvement. WBC trending down . Change antibiotics to ancef and clinida for now. Start on probiotics. if patient continues to improve, anticipate D/C AM Pertinent ROS: Denies headache, dizziness Denies chest pain, palpitations Denies cough or shortness of breath Denies abdominal pain, nausea or vomiting. - Constitutional Vitals: Vital Signs Temp Pulse Resp BP Pulse Ox 97.7 F 82 18 123/67 97 01/05/17 11:30 01/05/17 04:15 01/05/17 11:29 01/05/17 11:29 01/05/17 11:29 Period Temp Pulse Resp BP Sys/Scott Pulse Ox Last 24 Hr 96.6 F-98.5 F 76-85 16-20 113-153/47-84 96-97 Intake and Output 01/04/17 01/05/17 01/05/17 21:59 05:59 13:59 Intake Total 230 / 230 850 / 850 598 / 598 Output Total 375 / 375 600 / 600 Balance -145 / -145 250 / 250 598 / 598 Weight 224 lb 4.8 oz Intake & Output: Intake & Output 01/04/17 01/05/17 01/05/17 21:59 05:59 13:59 Intake Total 230 / 230 850 / 850 598 / 598 Output Total 375 / 375 600 / 600 Balance -145 / -145 250 / 250 598 / 598 Weight 224 lb 4.8 oz Intake: IV 50 / 50 50 / 50 598 / 598 Cleocin 600 mg In 54 / 54 Dextrose 5% in Water 50 ml @ 100 mls/hr IV Q6H [facility] Rx#:[id number] Zosyn 3.375 gm In 50 / 50 50 / 50 50 / 50 Dextrose 5% in Water 50 ml @ 100 mls/hr IV Q6H [facility] Rx#:[id number] Vancomycin 1,500 mg In 494 / 494 Sodium Chloride 0.9% 500 ml @ 333.3 mls/hr IV Q24H [facility] Rx#:[id number] Oral 180 / 180 800 / 800 Output: Void Amount 375 / 375 600 / 600 Exam: Constitutional; Afebrile, cooperative, alert, not in distress. Eyes- No icterus, , No periorbital swelling Ears- Ext ear normal, hearing normal to conversation. Neck- Midline trachea, supple Respiratory system: Air Entry equal on both sides, No crackles or wheezing, no rhonchi. CVS- Rate rhythm regular, S1,S2 heard, no gallop, no rub. Abdomen- Soft nontender abdomen, no organomegaly, no tenderness, no guarding or rigidity, [employer]LET[employer] SC[employer]- AOOx3, moving all extremities, no gross focal deficit noted. Left leg: erythema still in the marked region, no new lesions, no skipped lesion ,s affected area still much warmer than periphery. Medical - PN: Obj Da - Labs CBC & Chem 7: 01/05/17 05:00 01/05/17 05:00 Labs: Abnormal Lab Results 01/05/17 01/04/17 01/04/17 05:00 04:30 04:30 WBC 12.1 H 13.9 H RBC 3.74 L 3.68 L Hgb 11.0 L 10.9 L Hct 32.7 L 32.5 L Gran % 81.7 H Lymph % (Auto) 10.9 L Gran # 8.7 H 11.4 H Lymph # (Auto) Calcium Phosphorus 2.4 L Albumin 3.1 L Albumin/Globulin Ratio 0.9 L Vancomycin Trough 01/03/17 01/03/17 01/03/17 17:06 04:25 04:25 WBC 15.4 H RBC 3.67 L Hgb 10.8 L Hct 32.3 L Gran % 87.4 H Lymph % (Auto) 8.2 L Gran # 13.4 H Lymph # (Auto) 1.3 L Calcium 8.2 L Phosphorus 2.1 L Albumin 3.0 L Albumin/Globulin Ratio Vancomycin Trough 7.0 H Meds: Medications Acetaminophen (Tylenol) 650 mg PO Q6HP PRN PRN Reason: PAIN/FEVER > 101 Last Admin: 01/02/17 20:05 Dose: 650 mg Albuterol/Ipratropium (Duoneb) 3 ml NEB Q6HRT PRN PRN Reason: Shortness Of Breath Or Wheezing Cefazolin Sodium (Ancef) 2 gm IV Q8H [facility] Last Admin: 01/05/17 12:11 Dose: 2 gm Diltiazem HCl (Cardizem Cd) 240 mg PO DAILY [facility] Last Admin: 01/05/17 09:31 Dose: 240 mg Heparin Sodium (Porcine) (Heparin Flush) 2 ml IV Q12 [facility] Last Admin: 01/05/17 09:32 Dose: 2 ml Clindamycin Phosphate 600 mg/ (Dextrose) 54 mls @ 100 mls/hr IV Q6H [facility] Last Infusion: 01/05/17 11:22 Dose: Infused Lactobacillus Rhamnosus (Culturelle) 1 cap PO BID [facility] Last Admin: 01/05/17 11:22 Dose: 1 cap Magnesium Hydroxide (Milk Of Magnesia) 30 ml PO DAILYP PRN PRN Reason: Constipation Naloxone HCl (Narcan) 0.1 mg IV Q2MIN PRN PRN Reason: Opiate Reversal Tolterodine 2 Mg (Tablet) 1 dose PO BID [facility] Last Admin: 01/05/17 09:31 Dose: 1 dose Ondansetron HCl (Zofran) 4 mg IV Q6HP PRN PRN Reason: Nausea And Vomiting Rivaroxaban (Xarelto) 20 mg PO HS [facility] Last Admin: 01/04/17 21:09 Dose: 20 mg Sodium Chloride (Saline Flush) 10 ml IV Q8 [facility] Last Admin: 01/05/17 05:33 Dose: 10 ml Trazodone HCl (Desyrel) 25 mg PO HSP PRN PRN Reason: Insomnia Medical - PN: A/P - Time Spent With Patient Total time spent is greater than 50% in coordination of care (as documented) at patient's floor/unit and/or counseling patient: - Narrative A/P Narrative: A/P Left lower leg cellutlitis: Group A strep on blood cx and wound cx, IV anceph for now (vanco and zosyn held given microbiology results) , also had mssa, clinda added given Group A strep to limit toxin Bactermia: cleared, echo neg, on antibiotics atleast for 2 weeks. Severe sepsis- improving, wbc still high but trending down Afib rate controlled / on rivaroxaban continue same HTN stable bp, FUll c ode anticipate d/c tomorrow if remains stable and continues to improve.
[2017-01-05] MEDS: RIVAROXABAN 20 MG TABLET PO SCH (21:12)
[2017-01-06 04:51] LABS: Basophils # (Auto) 0 K/mcL (0.0-0.3); Basophils % (Auto) 0.3 % (0.0-2.0); Eosinophils # (Auto) 0.3 K/mcL (0.0-0.7); Eosinophils % (Auto) 3.5 % (0.0-7.0); Granulocytes % (Auto) 65.3 % (38.0-78.0); Lymphocytes # (Auto) 1.9 K/mcL (1.5-4.8); Lymphocytes % (Auto) 20.9 % (15.5-49.0); Mean Cell Volume 87.7 fL (80.0-100.0); Mean Corpuscular HGB Conc 33.2 g/dL (31.0-36.0); Mean Corpuscular Hemoglobin 29.1 pg (26.0-34.0); Monocytes # (Auto) 0.9 K/mcL (0.1-0.9); Platelet Count 208 K/mcL (140-440); RBC 3.45 M/mcL (4.00-5.20); Red Cell Distribution Width 14.1 % (11.5-14.5)
[2017-01-06 05:04] LABS: ALT/SGPT 13 U/l (0-40); Albumin 3.1 gm/dL (3.2-5.2); Albumin/Globulin Ratio 0.9 (1.0-2.3); Alkaline Phosphatase 88 U/L (39-117); Bilirubin,Direct < 0.2 mg/dL (0.0-0.3); Blood Urea Nitrogen 15 mg/dl (8-23); Gamma Glutamyl Transpeptidase 27 U/L (5-36); Magnesium 2.1 mg/dL (1.6-2.5); Uric Acid 4.1 mg/dL (2.5-8.0)
[2017-01-06] MEDS: 0.9 % SODIUM CHLORIDE 10 ML SYRINGE IV SCH (06:05)
[2017-01-06] MEDS: ceFAZolin 1 GM VIAL IV SCH ×2 (06:05→12:06)
[2017-01-06] MEDS: CLINDAMYCIN 600 MG in DEXTROSE 5% IN WATER 50 ML IV SCH ×2 (06:05→12:06)
[2017-01-06] MEDS: TOLTERODINE 2 MG TABLET PO SCH (08:44)
[2017-01-06] MEDS: DILTIAZEM 240 MG CAP.XL.24H PO SCH (08:45)
[2017-01-06] MEDS: LACTOBACILLUS 1 CAPSULE PO SCH (09:51)
--- NOTE | 2017-01-06 11:13 | Discharge Summary ---
Medical - DS: Prov Patient information: Note initiated : 01/06/17 at 11:09 am Service Date, if different from initiated Date: [] Patient: Xi Moran a 76 y/o F admitted on 01/01/17 for Hand Tremors/ Cellulitis, Sepsis. Chief Complaint: [] Date of admission: 01/01/17 22:13 Discharge date: 01/06/17 Admitting clinician: Naida Doll Consults: 01/04/17 12:01 Consult to Physician [CONS] Routine Comment: left heel wound Consulting Provider: Jose Brown Reason For Exam: Physician to Consult Discharging clinician: Naida Doll Medical - DS: Meds - Discharge Medications Active and Home Medications: Home Medications Albuterol Sulfate [Proventil Hfa] 1 - 2 puff INH Q6H PRN 01/01/17 [History Confirmed 01/02/17 Last Taken Unknown] Benzonatate [Benzonatate] 100 mg PO TID 01/01/17 [History Confirmed 01/01/17 Last Taken 01/01/17] Diltiazem HCl [Diltiazem ER] 240 mg PO DAILY 01/01/17 [History Confirmed Last Taken Unknown] Hydrocodone/APAP 7.5/325Mg 1 tablet PO Q6H PRN 01/01/17 [History Confirmed 01/02 Last Taken Unknown] Methocarbamol [Robaxin-750] 750 mg PO QIDP PRN 01/01/17 [History Confirmed 01/01 Last Taken Unknown] Rivaroxaban [Xarelto] 20 mg PO HS 01/01/17 [History Confirmed 01/01/17 Last Taken Unknown] Rivaroxaban [Xarelto] 20 mg PO QHS 01/01/17 [History Confirmed 01/01/17 Last Taken Unknown] Tolterodine Tartrate [Detrol] 2 mg PO BID 01/01/17 [History Confirmed 01/01/17 Last Taken Unknown] Medical - DS: Hosp Hospital course: Ms. Moran is a 76 year old Female with h/o HTN, Afib presented to the ER today after being having shakes and weakness going on since the day of presentation. The patient had come to visit her brother, and at his place noted that she was having some shakes, she was also a bit weak, but no other symptoms. She checked with her friend who is a nurse who advised her to come to the ER. In the ER she was noted to be febrile with tmax of > 105, The patients shakes resolved in the ER. The patient denied any other complaint. NO subjective fever, some chills, but no sweating.mild headache with fever, no runny nose, no watery eyes, no difficulty in swallowing, no sinus pain, no acute loss or hearing or otalgia, she had no cough, no abdominal pain, no urinary symptoms, no bowel symptoms, chr joint pains no acute changes, no unprovoked skin rash. The patient workup in the ER Showed elevated wbc count, neg cxr, mildly positive UA (in .light of neg symptoms). Thee patient exam in the ER revealed a abrasion to the left heel, with surrounding warmth and redness. The patient noted that she had injured the foot 5 days ago, but did not notice anything unusual until it was pointed out to her today in the ER. Thee patient Blood cx, u rine CX, wound Cx done, patient was given levofloxacin and admitted to the hospital for cellulitis. The patient Blood cultures were positive for Group A strep and the patient had rapid progression of her cellulitis the next day, she was started on Vanco and zosyn on the day of admission, the patients cellulitis remained stable since then. The patients wbc count as well as fever subsided over the next few days. Wound culture on the left heel was positive for strep as well as mssa. Repeat blood cx neg, Echo neg for endocarditis. The patient still had warmth in the left lower extremity therefore CT scan was done which did not show any pus or deep tissue infection, only cellulitis. The patient at the time of discharge is afebrile, tolerating po well, and ambulatory. The patient will be discharged home on po keflex 500mg QID x 14 days. Discharge diagnosis: Cellulitis. - Time Spent with Patient Total time spent providing and/or coordinating discharge services: Less than 30 minutes Medical - DS: Exam - Constitutional Vitals: Vital Signs Temp Pulse Resp BP Pulse Ox 01/06/17 07:02 97.8 F 20 121/66 95 01/06/17 06:45 20 95 01/06/17 03:32 98.1 F 82 18 124/60 96 01/05/17 23:58 98.1 F 79 16 128/76 97 01/05/17 20:00 98.3 F 78 16 139/79 97 01/05/17 15:55 98.1 F 20 123/67 97 01/05/17 11:30 97.7 F 01/05/17 11:29 96.6 F L 18 123/67 97 Intake and Output 01/05/17 01/06/17 01/06/17 21:59 05:59 13:59 Intake Total 1584 / 1584 474 / 474 54 / 54 Output Total 300 / 300 Balance 1584 / 1584 174 / 174 54 / 54 Intake: IV 54 / 54 54 / 54 54 / 54 Cleocin 600 mg In 54 / 54 54 / 54 54 / 54 Dextrose 5% in Water 50 ml @ 100 mls/hr IV Q6H [facility] Rx#:[id number] Oral 1530 / 1530 420 / 420 Output: Void Amount 300 / 300 Other: Meal Dinner Apple Percent of Meal Consumed 75% 50% Feeding Ability Independent Independent # Voids 4 Weight 227 lb 8 oz 227 lb 8 oz Patient Weight 01/07/17 05:59 Weight 227 lb 8 oz Additional comments: Constitutional; Afebrile, cooperative, alert, not in distress. Eyes- No icterus, , No periorbital swelling Ears- Ext ear normal, hearing normal to conversation. Neck- Midline trachea, supple Respiratory system: Air Entry equal on both sides, No crackles or wheezing, no rhonchi. CVS- Rate rhythm regular, S1,S2 heard, no gallop, no rub. Abdomen- Soft nontender abdomen, no organomegaly, no tenderness, no guarding or rigidity, [employer]WORK [employer]GRAM[employer]- AOOx3, moving all extremities, no gross focal deficit noted. Left lower extremity, erythema and warmth still within the marked lines. no fluctuation, good pulses. Medical - DS: Data Procedures and tests throughout hospitalization: CT left leg IMPRESSION: Moderate cellulitis throughout the calf. There is no complication of abscess, myositis/fasciitis or osteomyelitis. Labs on day of discharge: Labs from last 24 hours 01/06/17 01/06/17 04:00 04:00 WBC 9.1 RBC 3.45 L Hgb 10.0 L Hct 30.2 L MCV 87.7 MCH 29.1 MCHC 33.2 RDW 14.1 Plt Count 208 MPV 9.0 Gran % 65.3 Lymph % (Auto) 20.9 [place] % (Auto) 10.0 Eos % (Auto) 3.5 Baso % (Auto) 0.3 Gran # 6.0 Lymph # (Auto) 1.9 [place] # (Auto) 0.9 Eos # (Auto) 0.3 Baso # (Auto) 0 Sodium 141 Potassium 3.8 Chloride 105 Carbon Dioxide 26 Anion Gap 10.0 BUN 15 Creatinine 1.0 GFR Calculation 54 Glucose 95 Uric Acid 4.1 Calcium 8.5 L Phosphorus 3.6 Magnesium 2.1 Total Bilirubin 0.2 Direct Bilirubin < 0.2 GGT 27 AST 13 ALT 13 Alkaline Phosphatase 88 Lactate Dehydrogenase 173 Total Protein 6.5 Albumin 3.1 L Globulin 3.4 Albumin/Globulin Ratio 0.9 L Triglycerides 82 Preliminary micro results at discharge 01/03/17 08:15 Blood Culture - Preliminary Blood 01/03/17 08:25 Blood Culture - Preliminary Blood Medical - DS: A/P - Patient/Caregiver Discharge Instructions Activity: increase activity as tolerated Diet: Cardiac Additional Instructions: Take antibiotic for weeks. (Cephalexin 500mg four times a day) Follow up with PCP in 1 week Go to the ER if any fever, chills, weakness, shakes or increasing redness. - Follow up Plan Follow up with: Brenda Pack MD [Physician] - (Please call/schedule follow up to be seen in 7-10 days. We have left a message for Azeb at [facility] to schedule you.) Disposition: Home, Self-Care Prognosis: Fair Rehab Potential: Fair I certify that the patient requires SNF services: No Overall status at discharge: patient is progressing back to baseline
== END 2017-01-06 12:35 | disposition home or self-care (01) | DRG 872 ==
LOC: ED 17:41 → MEDSUR 22:13
PROVIDERS: ADMIT Internal Medicine; ATTEND Internal Medicine